=== PATIENT | female | born 1975 | race Caucasian/White ===

== ENCOUNTER 2017-11-15 14:55 | Observation (INO) | payer MEDICAID, OTHER, SELFPAY ==
[2017-11-15] MEDS ORDERED: MORPHINE 4 MG/ML SYR ONE (15:14)
[2017-11-15] MEDS ORDERED: ONDANSETRON 4 MG/2 ML VIAL ONE (15:14)
[2017-11-15] MEDS ORDERED: NA CHLORIDE 0.9% 1,000 ML ONE (15:14)
[2017-11-15 15:44] LABS: Absolute Lymphocytes (CBC) 1.8 K/uL (0.7-4.9); Absolute Monocytes 0.6 K/uL (0.1-1.3); Absolute Neutrophil 4.9 K/uL (1.8-8.0); Basophils % 0.6 % (0-1.3); Hematocrit 38.3 % (36.0-45.0); Lymphocytes % 22.9 % (15.3-44.8); MCH 29.3 pg (27.0-35.0); MCV 87.1 fL (80-100); MPV 9.9 fL (7.6-11.3); Monocytes % 7.4 % (3.3-12.3); RBC Red Blood Cell Count 4.39 M/uL (3.86-4.86)
[2017-11-15] MEDS ORDERED: KETOROLAC 30 MG/ML INJ ONE (16:03)
--- NOTE | 2017-11-15 17:04 | RAD REPORT ---
EXAM DESCRIPTION: CT - Abdomen Pelvis W Contrast - 11/15/2017 4:45 pm CLINICAL HISTORY: Abdominal pain COMPARISON: none. TECHNIQUE: Computed axial tomography of the abdomen pelvis was obtained. 100 cc Isovue-300 was admin istered intravenously. Oral contrast was not requested which limits evaluation of bowel. All CT scans are performed using dose optimization technique as appropriate and may include automated exposure control or mA/KV adjustment according to patient size. FINDINGS: The liver, spleen, pancreas, adrenal and kidneys appear unremarkable. There is no evidence of diverticulitis. The appendix is normal A left rectus muscle hematoma measures 5 x 3 centimeters. It contains curvilinear areas of increased density probably indicating active bleeding. IMPRESSION: 5 x 3 centimeter left rectus muscle hematoma with active bleeding
[2017-11-15 17:14] LABS: Urine Blood NEGATIVE (NEG); Urine Glucose NEGATIVE (NEG); Urine Protein NEGATIVE (NEG)
--- NOTE | 2017-11-15 17:26 | EDPHYS ---
Physician Documentation [facility] Name: Glo Lowery Age: 42 yrs Sex: Female : 1975 Arrival Date: 11/15/2017 Time: 15:01 Bed 27 Private MD: ED Physician Matti Poole HPI: 11/15 15:37 This 42 yrs old Female presents to ER via EMS with complaints of abdominal jr8 pain. 15:37 The patient presents with abdominal pain in the lower abdomen. Onset: The jr8 symptoms/episode began/occurred acutely, today. The symptoms do not radiate. Associated signs and symptoms: none. The symptoms are described as stabbing. Modifying factors: The symptoms are alleviated by nothing, the symptoms are aggravated by nothing. Severity of pain: At its worst the pain was moderate in the emergency department the pain is unchanged. The patient has not experienced similar symptoms in the past. The patient has not recently seen a physician. 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 - Social history:: Smoking status: Patient/guardian denies using tobacco, Patient/guardian denies using alcohol, street drugs, IV drugs. - Ebola Screening: : No symptoms or risks identified at this time. ROS: 15:37 ENT: Negative for injury, pain, and discharge, Neck: Negative for injury, pain, and jr8 swelling, Cardiovascular: Negative for chest pain, palpitations, and edema, Respiratory: Negative for shortness of breath, cough, wheezing, and pleuritic chest pain, Back: Negative for injury and pain, MS/Extremity: Negative for injury and deformity, Skin: Negative for injury, rash, and discoloration, Neuro: Negative for headache, weakness, numbness, tingling, and seizure. 15:37 Abdomen/GI: Positive for abdominal pain, Negative for nausea, vomiting, and diarrhea, abdominal distension, anorexia, dysphagia, hematemesis, black/tarry stool, rectal pain, rectal bleeding, bowel incontinence, flatulence. Exam: 15:37 Eyes: Pupils equal round and reactive to light, extra-ocular motions intact. Lids and jr8 lashes normal. Conjunctiva and sclera are non-icteric and not injected. Cornea within normal limits. Periorbital areas with no swelling, redness, or edema. ENT: Nares patent. No nasal discharge, no septal abnormalities noted. Tympanic membranes are normal and external auditory canals are clear. Oropharynx with no redness, swelling, or masses, exudates, or evidence of obstruction, uvula midline. Mucous membranes moist. Neck: Trachea midline, no thyromegaly or masses palpated, and no cervical lymphadenopathy. Supple, full range of motion without nuchal rigidity, or vertebral point tenderness. No Meningismus. Cardiovascular: Regular rate and rhythm with a normal S1 and S2. No gallops, murmurs, or rubs. Normal PMI, no JVD. No pulse deficits. Respiratory: Lungs have equal breath sounds bilaterally, clear to auscultation and percussion. No rales, rhonchi or wheezes noted. No increased work of breathing, no retractions or nasal flaring. Back: No spinal tenderness. No costovertebral tenderness. Full range of motion. Skin: Warm, dry with normal turgor. Normal color with no rashes, no lesions, and no evidence of cellulitis. MS/ Extremity: Pulses equal, no cyanosis. Neurovascular intact. Full, normal range of motion. Neuro: Awake and alert, GCS 15, oriented to person, place, time, and situation. Cranial nerves II-XII grossly intact. Motor strength 5/5 in all extremities. Sensory grossly intact. Cerebellar exam normal. Normal gait. 15:37 Constitutional: The patient appears alert, awake, in obvious distress, in obvious pain. 15:37 Abdomen/GI: Inspection: abdomen appears normal, Bowel sounds: active, all quadrants, Palpation: soft, in all quadrants, moderate abdominal tenderness, in the right lower quadrant and left lower quadrant, mass, is not appreciated, rebound tenderness, is not appreciated, voluntary guarding, is not appreciated, involuntary guarding, is elicited in the right lower quadrant and left lower quadrant, no appreciated organomegaly, Indicators: McBurney's point is tender, Barnett's sign is negative, Rovsing's sign is negative, Obturator sign is negative, Psoas sign is negative, Liver: no appreciated palpable abnormalities, tenderness, is not appreciated. Vital Signs: 15:04 BP 121 / 80; Pulse 84; Resp 18; Temp 98.2; Pulse Ox 100% on R/A; Weight 54.43 kg; mg2 Height 5 ft. 1 in. (154.94 cm); Pain 10/10; 16:06 BP 116 / 62; Pulse 82; Resp 18; Pulse Ox 100% on R/A; Pain 8/10; mg2 16:54 BP 123 / 50; Pulse 87; Resp 18; Pulse Ox 100% on R/A; Pain 8/10; mg2 18:04 BP 121 / 77; Pulse 82; Resp 18; Pulse Ox 99% on R/A; Pain 2/10; mg2 19:16 BP 118 / 77; Pulse 84; Resp 18; Pulse Ox 100% on R/A; Pain 2/10; mg2 15:04 Body Mass Index 22.67 (54.43 kg, 154.94 cm) mg2 MDM: 15:03 Patient medically screened. jr8 17:20 Data reviewed: vital signs, nurses notes, lab test result(s), radiologic studies, CT jr8 scan. Data interpreted: Pulse oximetry: on room air is 100 %. Interpretation: normal. Counseling: I had a detailed discussion with the patient and/or guardian regarding: the historical points, exam findings, and any diagnostic results supporting the discharge/admit diagnosis, lab results, radiology results, the need for further work-up and treatment in the hospital. ED course: Dr. Horvath consulted and will see patient . 11/15 15:10 Order name: Basic Metabolic Panel; Complete Time: 17:50 11/15 15:10 Order name: CBC with Diff; Complete Time: 15:51 11/15 15:10 Order name: Creatinine for Radiology; Complete Time: 16:16 11/15 15:10 Order name: Hepatic Function; Complete Time: 17:50 11/15 15:10 Order name: Lipase; Complete Time: 17:50 11/15 16:35 Order name: Urine Dipstick--Ancillary (enter results); Complete Time: 17:20 ag 11/15 15:52 Order name: CT Abd/Pelvis - W/Contrast; Complete Time: 17:05 11/15 16:35 Order name: Urine --Ancillary (enter results); Complete Time: 17:20 ag 11/15 19:01 Order name: Type And Screen mg2 11/15 15:10 Order name: Urine Test (obtain specimen); Complete Time: 16:07 [facility] 11/15 15:10 Order name: IV Saline Lock; Complete Time: 15:46 [facility] 11/15 15:10 Order name: Labs collected and sent; Complete Time: 15:46 [facility] 11/15 15:10 Order name: Urine Dipstick-Ancillary (obtain specimen); Complete Time: 16:07 [facility] 11/15 17:30 Order name: CONS Physician Consult [facility] 11/15 19:07 Order name: Diet Regular; Complete Time: 19:07 mg2 Administered Medications: 15:13 Drug: Zofran 4 mg Route: IVP; Site: right antecubital; mg2 16:55 Follow up: Response: No adverse reaction mg2 15:13 Drug: morphine 4 mg Route: IVP; Site: right antecubital; mg2 16:55 Follow up: Response: No adverse reaction; No change in condition; Pain is unchanged, mg2 physician notified 15:14 Drug: NS 0.9% 1000 ml Route: IV; Rate: 1000 ml; Site: right antecubital; mg2 16:55 Follow up: Response: No adverse reaction; IV Status: Completed infusion mg2 16:06 Drug: TORadol 30 mg Route: IVP; Site: right antecubital; mg2 16:55 Follow up: Response: No adverse reaction; No change in condition mg2 17:26 Drug: fentaNYL (PF) 75 mcg Route: IVP; Site: right antecubital; mg2 17:57 Follow up: Response: No adverse reaction; Marked relief of symptoms mg2 Disposition: 11/15/17 17:26 Hospitalization ordered by Rina Elizondo for Observation. Preliminary diagnosis are Abdominal and pelvic pain, Hematoma of the left Rectus Abdominis , Intractable abdominal pain . - Bed requested for Telemetry/MedSurg (observation). - Status is Observation. mg2 - Condition is Stable. - Problem is new. - Symptoms are unchanged. UTI on Admission? No Addendum: 11/17/2017 07:52 Co-signature as Attending Physician, Matti Poole MD I agree with the assessment and w a plan of care. Signatures: Dispatcher [employer] Cassidy Drake RN RN dw Quinn Storm PA PA jr8 Matti Poole MD MD wa Gardose, Michele, RN RN mg2 Corrections: (The following items were deleted from the chart) 11/15 17:13 15:37 Abdomen/GI: Inspection: abdomen appears normal, Bowel sounds: active, all jr8 quadrants, Palpation: soft, in all quadrants, severe abdominal tenderness, in the right lower quadrant, mass, is not appreciated, rebound tenderness, is not appreciated, voluntary guarding, is not appreciated, involuntary guarding, is elicited in the right lower quadrant, no appreciated organomegaly, Indicators: McBurney's point is tender, Barnett's sign is negative, Rovsing's sign is negative, Obturator sign is negative, Psoas sign is negative, Liver: no appreciated palpable abnormalities, tenderness, is not appreciated, jr8 17:26 17:26 Hospitalization Ordered by Rina Elizondo MD for Observation. Preliminary jr8 diagnosis is Abdominal and pelvic pain; Hematoma of the left Rectus Abdominus ; Intractable abdominal pain . Bed requested for Telemetry/MedSurg (observation). Status is Observation. Condition is Stable. Problem is new. Symptoms are unchanged. UTI on Admission? No. jr8 17:43 17:26 11/15/2017 17:26 Hospitalization Ordered by Rina Elizondo MD for Observation. dw Preliminary diagnosis is Abdominal and pelvic pain; Hematoma of the left Rectus Abdominis ; Intractable abdominal pain . Bed requested for Telemetry/MedSurg (observation). Status is Observation. Condition is Stable. Problem is new. Symptoms are unchanged. UTI on Admission? No. jr8 19:32 17:43 11/15/2017 17:26 Hospitalization Ordered by Rina Elizondo MD for Observation. mg2 Preliminary diagnosis is Abdominal and pelvic pain; Hematoma of the left Rectus Abdominis ; Intractable abdominal pain . Bed requested for Telemetry/MedSurg (observation). Status is Observation. Condition is Stable. Problem is new. Symptoms are unchanged. UTI on Admission? No. dw
--- NOTE | 2017-11-15 17:26 | ER ---
Nurse's Notes [facility] Name: Glo Lowery Age: 42 yrs Sex: Female : 1975 Arrival Date: 11/15/2017 Time: 15:01 Bed 27 Private MD: Diagnosis: Abdominal and pelvic pain;Hematoma of the left Rectus Abdominis ;Intractable abdominal pain Presentation: 11/15 15:01 Presenting complaint: EMS states: she got a sudden right abdominal pain radiating to mg2 the left side that started just few minutes DIRECTOR OF GLOBAL TALENT. Denies N/V. She is on Antibiotic for an infection for her (Pap Smear). Transition of care: patient was not received from another setting of care. Onset of symptoms was November 15, 2017. Risk Assessment: Do you want to hurt yourself or someone else? Patient reports no desire to harm self or others. Initial Sepsis Screen: Does the patient meet any 2 criteria? No. Patient's initial sepsis screen is negative. Does the patient have a suspected source of infection? No. Patient's initial sepsis screen is negative. Care prior to arrival: None. 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 - Social history:: Smoking status: Patient/guardian denies using tobacco, Patient/guardian denies using alcohol, street drugs, IV drugs. - Ebola Screening: : No symptoms or risks identified at this time. Screenin:06 Abuse screen: Denies threats or abuse. Denies injuries from another. Nutritional mg2 screening: No deficits noted. Tuberculosis screening: No symptoms or risk factors identified. Fall Risk IV access (20 points). Assessment: 15:46 General: Appears distressed, uncomfortable, Behavior is cooperative, crying. Pain: mg2 Complains of pain in right lower quadrant Pain radiates to left abdomen Pain currently is 10 out of 10 on a pain scale. Quality of pain is described as aching, ripping Pain began suddenly, Is continuous. Neuro: Level of Consciousness is awake, alert, obeys commands, Oriented to person, place, time, situation. Cardiovascular: Capillary refill < 3 seconds Patient's skin is warm and dry. Respiratory: Airway is patent Respiratory effort is even, unlabored, Respiratory pattern is regular, symmetrical. GI: Abdomen is flat, non-distended, Reports lower abdominal pain. : No signs and/or symptoms were reported regarding the genitourinary system. EENT: No signs and/or symptoms were reported regarding the EENT system. Derm: Skin is intact, Skin is pink, warm \T\ dry. normal. Musculoskeletal: No signs and/or symptoms reported regarding the musculoskeletal system. 16:07 Reassessment: Patient appears in no apparent distress at this time. Patient and/or mg2 family updated on plan of care and expected duration. Pain level reassessed. Patient is alert, oriented x 3, equal unlabored respirations, skin warm/dry/pink. 16:54 Reassessment: Patient appears in no apparent distress at this time. Patient and/or mg2 family updated on plan of care and expected duration. Pain level reassessed. Patient is alert, oriented x 3, equal unlabored respirations, skin warm/dry/pink. 18:21 Reassessment: TOMMY Benjamin said receiving nurse will call back to take the report. mg2 19:17 Reassessment: julia gurrola called and informed that patient will be admitted. mg2 19:18 Reassessment: TOMMY Preston will call back to receive the report. mg2 Vital Signs: 15:04 BP 121 / 80; Pulse 84; Resp 18; Temp 98.2; Pulse Ox 100% on R/A; Weight 54.43 kg; mg2 Height 5 ft. 1 in. (154.94 cm); Pain 10/10; 16:06 BP 116 / 62; Pulse 82; Resp 18; Pulse Ox 100% on R/A; Pain 8/10; mg2 16:54 BP 123 / 50; Pulse 87; Resp 18; Pulse Ox 100% on R/A; Pain 8/10; mg2 18:04 BP 121 / 77; Pulse 82; Resp 18; Pulse Ox 99% on R/A; Pain 2/10; mg2 19:16 BP 118 / 77; Pulse 84; Resp 18; Pulse Ox 100% on R/A; Pain 2/10; mg2 15:04 Body Mass Index 22.67 (54.43 kg, 154.94 cm) mg2 ED Course: 15:01 Patient arrived in ED. mg2 15:03 Quinn Storm PA is PHCP. jr8 15:03 Matti Poole MD is Attending Physician. jr8 15:03 Triage completed. mg2 15:05 Arm band placed on. mg2 15:05 No provider procedures requiring assistance completed. Inserted saline lock: 20 gauge mg2 in right antecubital area, using aseptic technique. Blood collected. 15:13 Jeronimo Bowser, TOMMY is Primary Nurse. mg2 15:48 Patient has correct armband on for positive identification. Pulse ox on. NIBP on. Door mg2 closed. Warm blanket given. 16:[address] via wheelchair. cw1 16:45 CT completed. Patient moved back from CT. cw1 16:45 CT Abd/Pelvis - W/Contrast In Process Unspecified. EDMS 17:25 Rina Elizondo MD is Hospitalizing Provider. jr8 19:17 Patient admitted, IV remains in place. mg2 Administered Medications: 15:13 Drug: Zofran 4 mg Route: IVP; Site: right antecubital; mg2 16:55 Follow up: Response: No adverse reaction mg2 15:13 Drug: morphine 4 mg Route: IVP; Site: right antecubital; mg2 16:55 Follow up: Response: No adverse reaction; No change in condition; Pain is unchanged, mg2 physician notified 15:14 Drug: NS 0.9% 1000 ml Route: IV; Rate: 1000 ml; Site: right antecubital; mg2 16:55 Follow up: Response: No adverse reaction; IV Status: Completed infusion mg2 16:06 Drug: TORadol 30 mg Route: IVP; Site: right antecubital; mg2 16:55 Follow up: Response: No adverse reaction; No change in condition mg2 17:26 Drug: fentaNYL (PF) 75 mcg Route: IVP; Site: right antecubital; mg2 17:57 Follow up: Response: No adverse reaction; Marked relief of symptoms mg2 Outcome: 17:26 Decision to Hospitalize by Provider. jr8 19:31 Admitted to Med/surg accompanied by tech, via wheelchair, room 212, with chart, Report mg2 called to TOMMY Preston 19:31 Condition: stable 19:31 Instructed on the need for admit, Demonstrated understanding of instructions. 19:32 Patient left the ED. 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 Denies N/V. mg2
[2017-11-15] MEDS ORDERED: FENTANYL CITR 100 MCG/2 ML ONE (17:27)
[2017-11-15 17:46] LABS: ALT/SGPT 28 U/L (12-78); AST/SGOT 34 U/L (15-37); Albumin 4.1 g/dL (3.4-5.0); Alkaline Phosphatase 89 U/L (45-117); BUN Blood Urea Nitrogen 15 mg/dL (7-18); Bicarbonate 24 mmol/L (21-32); Bilirubin Direct < 0.1 mg/dL (0-0.2); Bilirubin Total 0.5 mg/dL (0.2-1.0); Glucose Level 102 mg/dL (74-106); Lipase 238 U/L (73-393); Potassium 4.5 mmol/L (3.5-5.1); Sodium Level 138 mmol/L (136-145)
[2017-11-15] MEDS: ACETAMINOPHEN 500 MG TAB PO PRN (20:09)
[2017-11-15] MEDS: NA CHLORIDE 0.9% 1,000 ML IV SCH (20:10)
[2017-11-15 22:55] LABS: Hematocrit 31.5 % (36.0-45.0)
--- NOTE | 2017-11-16 02:09 | HP ---
Date of Admission: 11/15/2017 Reason For Admission: Abdominal pain. History Of Present Illness: A 42-year-old female with history of depression, anxiety, drug addicts w ith meth abuse. She is clean for the last 18 days according to the patient, presented emergency room with history of abdominal pain started in the lower abdomen on the left lower quadrant 3 days, was i nitially mild and patient said she pulled a muscle but this morning it was excruciating seen in [facility] emergency room. In the ER, she was evaluated. CAT scan of the abdomen showed a 5.3 cm rectus mu scle hematoma with active bleeding. The patient's CBC was normal. Currently, she looks comfortable. She has no abdominal pain. No nausea, vomiting. General Surgery consulted and Dr. Horvath advised to repeat serial imaging and he will evaluate the patient in the emergency room. Review of systems otherwise as below. Past Medical History: Significant for depression and anxiety. Past Surgical History: None. Allergies: NONE. Home Medications: She is on Seroquel and Prozac. Social History: She is single. Has 3 kids. Does not work. She does not smoke or drink. She is cl mio with methamphetamine and she is sober for 19 days. Family History: Significant for mother of pancreatitis secondary to alcoholism. Father alive. Review of Systems: Denies any fever, chills, night sweats, dizziness, lightheaded, headache, blurred vision. There was no change in weight or appetite. She does not have any cough, sputum, chest pain, palpitation, PND, orthopnea, dyspnea on exertion, lower extremity edema. No nausea, vomiting, but she had abdominal pa in in the left lower quadrant. There is no change in bowel movement, blood in stool or black stool. No dysuria, frequency, urgency, hematuria. No history of trauma. No seizure or stroke. She has hi story of depression and anxiety. Physical Examination: Vital Signs: Blood pressure is 121/80, respiratory rate 18, pulse 84, temperature 98.2, saturating 1 00% on room air. General: The patient is alert and oriented x3. Does not look in any distress. HEENT: Atraumatic, normocephalic. PERRLA. Oral mucosa is moist. Neck: Supple. No JVD. No carotid bruits. Chest: Clear to auscultation. Good air entry. Heart: Regular rate and rhythm. S1, S2 normal. No gallop or murmur. Abdomen: Tenderness with guarding in the left lower quadrant. There is no rebound. She does have p ositive bowel sounds. Extremities: No clubbing, cyanosis, or edema. No calf tenderness. Neurologic: Grossly intact. Cranial nerve exam 2 through 12 intact. Normal sensation. Normal refl exes. Normal muscle strength. Laboratory Data: Labs done in the emergency room showed CBC within normal. CMP within normal. CAT scan as I mentioned above. Assessment: This 42-year-old female with history of depression, anxiety, drug abuse, presented with abdominal pain and found to have left lower quadrant hematoma. 1.Left lower quadrant hematoma etiology? We will continue observation. Symptomatic treatment for p ain. I will check H and H every 6 hours. Transfused if hemoglobin below 9. General Surgery consult requested. 2.History of depression and anxiety. We will resume home medication. Also, verify dose from the ph armacy. 3.History of drug abuse. The patient is currently sober for the last 20 days. GLORIA/CHU Voice ID: [id number]
[2017-11-16 05:06] LABS: Absolute Lymphocytes (CBC) 1.3 K/uL (0.7-4.9); Absolute Monocytes 0.5 K/uL (0.1-1.3); Absolute Neutrophil 3.9 K/uL (1.8-8.0); Basophils % 0.6 % (0-1.3); Eosinophils % 5.5 % (0-4.4); Lymphocytes % 21.6 % (15.3-44.8); MCH 29.3 pg (27.0-35.0); MCV 87.2 fL (80-100); MPV 9.5 fL (7.6-11.3); Monocytes % 8.8 % (3.3-12.3); RBC Red Blood Cell Count 3.67 M/uL (3.86-4.86)
[2017-11-16] MEDS: ACETAMINOPHEN 500 MG TAB PO PRN ×3 (05:09→17:00)
[2017-11-16] MEDS: NA CHLORIDE 0.9% 1,000 ML IV SCH ×2 (05:10→17:00)
[2017-11-16 05:50] LABS: ALT/SGPT 22 U/L (12-78); AST/SGOT 25 U/L (15-37); Albumin 3.1 g/dL (3.4-5.0); Alkaline Phosphatase 68 U/L (45-117); BUN Blood Urea Nitrogen 14 mg/dL (7-18); Bicarbonate 29 mmol/L (21-32); Bilirubin Total 0.6 mg/dL (0.2-1.0); Glucose Level 79 mg/dL (74-106); Potassium 4.3 mmol/L (3.5-5.1); Protein, Total 5.9 g/dL (6.4-8.2); Sodium Level 140 mmol/L (136-145)
[2017-11-16 11:24] LABS: Hematocrit 30.7 % (36.0-45.0)
[2017-11-16 11:39] LABS: Barbiturates NEGATIVE (NEGATIVE); Benzodiazepines NEGATIVE (NEGATIVE); Cocaine NEGATIVE (NEGATIVE); METHAMPHETAM NEGATIVE (NEGATIVE); Methadone NEGATIVE (NEGATIVE); Opiates NEGATIVE (NEGATIVE); Phencyclidine NEGATIVE (NEGATIVE); THC Cannibis NEGATIVE (NEGATIVE)
--- NOTE | 2017-11-16 15:17 | P.PN ---
Subjective Date of Service: 11/16/17 Subjective: No new changes (pain minimal, no changes) Physical Examination - Vital Signs Temperature: 99.0 F Blood Pressure: 100/55 Pulse: 73 Respirations: 16 Pulse Ox (%): 99 - Physical Exam General: Alert, In no apparent distress, Cooperative Gastrointestinal: Other (soft, mild LLQ TTP, ND, no rebound, no guarding) - Studies Laboratory Data (last 24 hrs) 11/15/17 15:10: Sodium 138, Potassium 4.5, BUN 15, Creatinine 0.80, Glucose 102 , Total Bilirubin 0.5, AST 34, ALT 28, Alkaline Phosphatase 89, Lipase 238 11/15/17 15:05: Creatinine 0.90 11/15/17 15:05: WBC 7.7, Hgb 12.9, Hct 38.3, Plt Count 243 Assessment And Plan - Current Problems (Diagnosis) (1) Nontraumatic rectus hematoma Current Visit: Yes Status: Acute Plan: - hemoglobin stable - stable exam
--- NOTE | 2017-11-16 18:21 | PN ---
Subjective: Currently, patient is lying in bed. She looks comfortable, but she continues to have pa in in the left lower quadrant, though morphine helping. There was no fever, no chills overnight. Sh julia does not have any shortness of breath or chest pain. No black stool or blood in stool. Review of Systems: Otherwise, negative. Objective: Vital Signs: Currently, blood pressure is 100/55, respiratory rate 16, pulse 73, tempera ture 99. General: The patient is alert and oriented x3, does not look in any distress. HEENT: Atraumatic, normocephalic. PERRLA. Oral mucosa is moist. Neck: Supple. No JVD. No carotid bruits. Chest: Clear to auscultation. Good air entry. Heart: Regular rate and rhythm. S1, S2 normal. No gallop or murmur. Abdomen: Soft. Minimal tenderness in the left lower quadrant. There is no guarding or rebound. Po sitive bowel sounds. Extremities: No clubbing, cyanosis, or edema. No calf tenderness. Neurologic: Grossly intact. Laboratory Data: Labs today showed CBC with a hemoglobin down from 12.9 on admission to 10.5 today, otherwise normal chemistry with a normal QAMARKER] albumin is 3.1. Assessment And Plan: 1.Spontaneous left lower quadrant hematoma, etiology unknown at this point. General Surgery followi ng. H and H dropped, but it is still not drastic, no transfusion needed. At this point, we will con tinue H and H follow up every [address] Horvath from General Surgery following patient. Probably , will need to repeat imaging tomorrow morning, but we will wait for Surgery recommendation. 2.History of depression and anxiety. I will continue patient on Prozac 40 mg at bedtime and Seroque l 50 mg at bedtime. 3.History of drug abuse. The patient is sober for the last 3 weeks apparently. 4.Pain well controlled with morphine. 5.No deep vein thrombosis prophylaxis. The patient has large hematoma. 6.Discharge plan will depend on General Surgery recommendation and if H and H continued to be stable . MT/MODL Voice ID: [id number] Report ID: [id number]
--- NOTE | 2017-11-16 18:27 | CON ---
Date of Consultation: 11/16/2017 Brief History Of Present Illness: The patient is a 42-year-old female with a history of de pression, anxiety, and drug addiction with recent methamphetamine abuse approximately 20 days ago. S he is currently living in an assisted facility for rehabilitation from substance abuse. She presente d with approximately 1-2 day history of abdominal pain beginning in the left lower quadrant and sprea ding across her abdomen to her bilateral lower abdomen, but the pain is predominantly on the left low er quadrant at this time. She has no other symptoms other than the pain, it has been essentially unr elenting, sharp stabbing in nature, not alleviated by anything, and worse with palpation. She has no t had similar episodes before in the past. Past Medical History: Significant for depression and anxiety. Past Surgical History: Denies. Allergies: NONE. Home Medications: Seroquel and Prozac. Social History: She is single, has 3 kids. She is currently unemployed. Lives with a boyfriend. S he denies smoking or alcohol. 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 Family History: Her mother of pancreatitis due to secondary alcoholism. Review of Systems: A 10-point review of systems other than HPI, denies. Physical Examination: Vital Signs: At the time of my examination, her BMI is 22.7, her blood pressure was 131/67, pulse is 80, respiratory rate 18, and temperature 97.6. General: She is awake, alert, and oriented. Psychiatric: She is appropriate and conversive. HEENT: She is normocephalic. Sclerae anicteric. Mucous membranes are moist. Oropharynx clear. Neck: Supple. No JVD. Chest: Normal expansion and excursion. Cardiovascular: Regular rate and rhythm. Pulmonary: Clear to auscultation bilaterally. Abdomen: Soft with mild left lower quadrant tenderness to palpation. There is no focal peritonitis. There is no rebound. There is mild voluntary guarding. There are no abdominal scars with no herni as appreciated. Extremities: No clubbing, cyanosis, or edema. Skin: Warm and dry. Laboratory Data: She had a laboratory exam, which reveals a white blood count of 7.7, hemoglobin 10. 8, hematocrit 31.5, and platelet count is 243. Her sodium 138, potassium 4.5, chloride 105, carbon d ioxide 24, BUN 15, creatinine 0.9, and glucose is 102. Total bilirubin is 0.5, AST normal at 34, ALT 28, alkaline phosphatase is 89, and lipase is 238. UA was negative. test negative. Toxi cology screen is completely negative down the line. She had a CT scan performed of the abdomen and p marilu, which showed a 5 x 3 cm left rectus muscle hematoma, possibly with active bleeding. Assessment And Plan: This is a 42-year-old female, who presents with no trauma and a rectus sheath h ematoma on the left of uncertain etiology, given she has no history of trauma other than occasional s neezing she states, and there was no obvious etiology. Therefore, we will admit her for this due to the possibility of active bleeding and check serial H and Hs and serial abdominal exams. Should her hemoglobin remain stable and her examination not worsen, she will likely be a candidate for discharge tomorrow morning with instructions to follow up and avoid all blood thinners of any kind including o [id number]-[id number] to include aspirin and other [id number] blood thinners. I have explained the r isks, benefits, and alternatives of this plan to the patient. She agrees to proceed as indicated. Thank you for this interesting consult. KIRA/CHU Voice ID: [id number] Report ID: [id number]
[2017-11-16] MEDS: MORPHINE 2 MG/ML SYR IV PRN (20:34)
[2017-11-16] MEDS ORDERED: QUETIAPINE 25 MG TAB PO SCH (21:00)
[2017-11-16] MEDS ORDERED: FLUOXETINE 20 MG CAP PO SCH (21:00)
[2017-11-17] MEDS: NA CHLORIDE 0.9% 1,000 ML IV SCH ×2 (00:58→10:05)
[2017-11-17 05:22] LABS: Hematocrit 31.5 % (36.0-45.0)
[2017-11-17] MEDS: MORPHINE 2 MG/ML SYR IV PRN (10:04)
[2017-11-17 10:14] LABS: Hematocrit 31.2 % (36.0-45.0)
--- NOTE | 2017-11-17 13:47 | P.SSS ---
Patient History Date of Service: 11/17/17 History of Present Illness: A 42-year-old female with history of depression, anxiety, drug addicts with meth abuse. She is clean for the last 18 days according to the patient, presented emergency room with history of abdominal pain started in the lower abdomen on the left lower quadrant 3 days, was initially mild and patient said she pulled a muscle but this morning it was excruciating seen in surgical emergency room. In the ER, she was evaluated. CAT scan of the abdomen showed a 5.3 cm rectus muscle hematoma with active bleeding. The patient's CBC was normal. Currently, she looks comfortable. She has no abdominal pain. No nausea, vomiting. General Surgery consulted and Dr. Horvath advised to repeat serial imaging and he will evaluate the patient in the emergency room. Review of systems otherwise as below. Allergies No Known Allergies Allergy (Verified 11/15/17 19:52) Home Medications: Fluoxetine HCl [Prozac] 1 tab PO BEDTIME 11/15/17 Quetiapine Fumarate [Seroquel] 1 tab PO BEDTIME 11/15/17 Metronidazole 1 tab PO BID 11/16/17 - Past Medical/Surgical History Has patient received pneumonia vaccine in the past: No Diabetic: No -: Bacterial infection on papsmear -: anxiety/ depression -: emergency cs in 2004 -: 1995= ovarian dysplasia -: 1996= freezing of cervix -: 2014= removal of mass in the uterus - Social History Smoking Status: Never smoker Alcohol use: No CD- Drugs: Yes Caffeine use: Yes Place of Residence: Home Review of Systems 10-point ROS is otherwise unremarkable Physical Examination - Vital Signs Temperature: 98.5 F Blood Pressure: 122/60 Pulse: 84 Respirations: 16 Pulse Ox (%): 98 - Physical Exam General: Alert, In no apparent distress HEENT: Atraumatic, PERRLA, Mucous membr. moist/pink, EOMI, Sclerae nonicteric Neck: Supple, 2+ carotid pulse no bruit, No LAD, Without JVD or thyroid abnormality Respiratory: Clear to auscultation bilaterally, Normal air movement Cardiovascular: Regular rate/rhythm, Normal S1 S2 Gastrointestinal: Normal bowel sounds, No tenderness Musculoskeletal: No tenderness Integumentary: No rashes Neurological: Normal gait, Normal speech, Normal strength at 5/5 x4 extr, Normal tone, Normal affect Lymphatics: No axilla or inguinal lymphadenopathy Treatment Summary: Discharge diagnosis 1. Abdominal wall hematoma Hospital Course This is a 42-year-old female, who presents with no trauma and a rectus sheath hematoma on the left of uncertain etiology, patient had serial H&H which remained stable. General surgery was also consulted while here in the hospital. No surgical procedure were required patient remained stable. H&H remained stable as well. No further complication was noted this patient was discharged home under stable condition. - Disposition Disposition: ROUTINE DISCHARGE Condition: GOOD Diet: Regular Activity: Ad saul
== END 2017-11-17 15:45 | disposition home or self-care (01) ==
LOC: ER 14:55 → SUPCPDRO 14:55 → ERHOLD 17:27 → 2ND 19:07
PROVIDERS: ADMIT Internal Medicine; ATTEND Internal Medicine
DX: M79.81 Nontraumatic hematoma of soft tissue (principal); F41.8 Other specified anxiety disorders; F19.11 Other psychoactive substance abuse, in remission
CPT/HCPCS: 36415; 74177; 80048; 80053; 80076; 80307; 81003; 81025; 83690; 85014; 85018; 85025; 86850; 86900; 86901; 96361; 96374; 96375; 99285; G0378; J2270; J2405; J3010; J7030; Q9967

== ENCOUNTER 2017-11-22 13:58 | Emergency (ER) | payer MEDICAID, OTHER ==
[2017-11-22 15:49] LABS: Protime INR 1.06
[2017-11-22] MEDS ORDERED: FENTANYL CITR 100 MCG/2 ML ONE (15:50)
[2017-11-22] MEDS ORDERED: ONDANSETRON 4 MG/2 ML VIAL ONE (15:50)
[2017-11-22 15:51] LABS: Absolute Lymphocytes (CBC) 1.4 K/uL (0.7-4.9); Absolute Monocytes 0.9 K/uL (0.1-1.3); Absolute Neutrophil 6.6 K/uL (1.8-8.0); Basophils % 0.5 % (0-1.3); Eosinophils % 2.9 % (0-4.4); Hematocrit 36.2 % (36.0-45.0); Lymphocytes % 15.2 % (15.3-44.8); MCH 30.3 pg (27.0-35.0); MCV 87.5 fL (80-100); MPV 9.5 fL (7.6-11.3); Monocytes % 9.8 % (3.3-12.3); RBC Red Blood Cell Count 4.13 M/uL (3.86-4.86)
[2017-11-22 15:58] LABS: Albumin 3.9 g/dL (3.4-5.0); Bilirubin Direct 0.1 mg/dL (0-0.2); Bilirubin Total 0.5 mg/dL (0.2-1.0); Potassium 4.1 mmol/L (3.5-5.1)
[2017-11-22 17:05] LABS: Urine Blood NEGATIVE (NEG); Urine Glucose NEGATIVE (NEG); Urine Protein NEGATIVE (NEG); Urine Specific Gravity 1.015 (1.005-1.030)
--- NOTE | 2017-11-22 17:45 | EDPHYS ---
Physician Documentation [facility] Name: Glo Lowery Age: 42 yrs Sex: Female : 1975 Arrival Date: 11/22/2017 Time: 14:01 Bed 28 Private MD: Flaco Lantigua ED Physician Duncan Loo HPI: 11/22 17:00 This 42 yrs old Female presents to ER via Ambulatory with complaints of pm1 Bloody Stools. 17:00 The patient presents to the emergency department with rectal bleeding, a small amount, pm1 on toilet paper, 2 times since symptom onset. Onset: The symptoms/episode began/occurred today. Abdominal pain: located in the left lower quadrant, that does not radiate. Modifying factors: The symptoms are alleviated by nothing, the symptoms are aggravated by bowel movement. Associated signs and symptoms: Pertinent negatives: chest pain, diarrhea, fever, shortness of breath, vomiting. Severity of symptoms: Pain is currently a 0 / 10. The patient has not experienced similar symptoms in the past. The patient has been recently seen by a physician: Patient was admitted on 11/15 for rectus abdominal sheath hematoma. Patient was concerned that the rectal bleeding might be related to that. Patient's with anal pain with bowel movement, and trace amount of bright red blood on the paper with wiping. No blood in the toilet.. 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 - Social history:: Smoking status: unknown. - Ebola Screening: : No symptoms or risks identified at this time. ROS: 17:00 Constitutional: Negative for fever, chills, and weight loss, Eyes: Negative for injury, pm1 pain, redness, and discharge, ENT: Negative for injury, pain, and discharge, Neck: Negative for injury, pain, and swelling, Cardiovascular: Negative for chest pain, palpitations, and edema, Respiratory: Negative for shortness of breath, cough, wheezing, and pleuritic chest pain. 17:00 Back: Negative for injury and pain, : Negative for injury, bleeding, discharge, and swelling, MS/Extremity: Negative for injury and deformity, Skin: Negative for injury, rash, and discoloration, Neuro: Negative for headache, weakness, numbness, tingling, and seizure. 17:00 Abdomen/GI: Positive for abdominal pain, rectal pain, rectal bleeding, Negative for nausea, vomiting, and diarrhea. Exam: 17:00 Constitutional: This is a well developed, well nourished patient who is awake, alert, pm1 and in no acute distress. Head/Face: Normocephalic, atraumatic. Eyes: Pupils equal round and reactive to light, extra-ocular motions intact. Lids and lashes normal. Conjunctiva and sclera are non-icteric and not injected. Cornea within normal limits. Periorbital areas with no swelling, redness, or edema. ENT: Nares patent. No nasal discharge, no septal abnormalities noted. Tympanic membranes are normal and external auditory canals are clear. Oropharynx with no redness, swelling, or masses, exudates, or evidence of obstruction, uvula midline. Mucous membranes moist. Neck: Trachea midline, no thyromegaly or masses palpated, and no cervical lymphadenopathy. Supple, full range of motion without nuchal rigidity, or vertebral point tenderness. No Meningismus. Chest/axilla: Normal chest wall appearance and motion. Nontender with no deformity. No lesions are appreciated. Cardiovascular: Regular rate and rhythm with a normal S1 and S2. No gallops, murmurs, or rubs. No pulse deficits. Respiratory: Lungs have equal breath sounds bilaterally, clear to auscultation and percussion. No rales, rhonchi or wheezes noted. No increased work of breathing, no retractions or nasal flaring. 17:00 Back: No spinal tenderness. No costovertebral tenderness. Full range of motion. Skin: Warm, dry with normal turgor. Normal color with no rashes, no lesions, and no evidence of cellulitis. MS/ Extremity: Pulses equal, no cyanosis. Neurovascular intact. Full, normal range of motion. 17:00 Abdomen/GI: Inspection: abdomen appears normal, Bowel sounds: normal, Palpation: abdomen is soft and non-tender, in all quadrants, Rectal exam: rectal tone normal, Stool: trace bright red blood on rectal examination. Tenderness present at 12 o'clock, hemorrhoid(s), are not appreciated, external, mass, is not appreciated, swelling, is not appreciated, Nikki RN, fissure at 12 o'clock. 17:00 Neuro: Orientation: is normal, Motor: moves all fours. Vital Signs: 14:05 BP 142 / 85; Pulse 97; Resp 16; Temp 97.1; Pulse Ox 99% on R/A; Weight 56.7 kg; Height la1 5 ft. 1 in. (154.94 cm); 15:54 BP 109 / 57; Pulse 84; Pulse Ox 98% on R/A; rv 16:39 BP 102 / 80; Pulse 85; Pulse Ox 95% on R/A; rv 17:20 BP 113 / 73; Pulse 81; Pulse Ox 98% on R/A; rv 18:03 BP 111 / 78; Pulse 91; Pulse Ox 99% on R/A; rv 14:05 Body Mass Index 23.62 (56.70 kg, 154.94 cm) la1 MDM: 14:59 Patient medically screened. [facility] 17:26 Data reviewed: vital signs. Data interpreted: Pulse oximetry: on room air is 98 %. pm1 Interpretation: normal. 17:42 Counseling: I had a detailed discussion with the patient and/or guardian regarding: the pm1 historical points, exam findings, and any diagnostic results supporting the discharge/admit diagnosis, lab results, the need for outpatient follow up, to return to the emergency department if symptoms worsen or persist or if there are any questions or concerns that arise at home. 11/22 15:17 Order name: Basic Metabolic Panel; Complete Time: 16:04 pm11/22 15:17 Order name: CBC with Diff; Complete Time: 16:04 pm11/22 15:17 Order name: Creatinine for Radiology; Complete Time: 16:04 pm11/22 15:17 Order name: Hepatic Function; Complete Time: 16:04 pm11/22 15:17 Order name: Lipase; Complete Time: 16:04 pm11/22 15:17 Order name: PT-INR; Complete Time: 16:04 pm11/22 15:17 Order name: IV Saline Lock; Complete Time: 15:55 pm1 11/22 15:17 Order name: Labs collected and sent; Complete Time: 15:55 pm1 11/22 15:17 Order name: Urine Dipstick-Ancillary (obtain specimen); Complete Time: 15:55 pm1 11/22 15:17 Order name: Urine Test (obtain specimen); Complete Time: 15:55 pm1 11/22 15:19 Order name: Josh; Complete Time: 17:19 ss 11/22 15:36 Order name: Urine Dipstick--Ancillary (enter results); Complete Time: 17:19 eb Administered Medications: No medications were administered Disposition: 11/23 12:21 Co-signature as Attending Physician, Duncan Loo MD I agree with the assessment and lily plan of care. Disposition: 11/22/17 17:45 Discharged to Home. Impression: Acute anal fissure. - Condition is Stable. - Discharge Instructions: Anal Fissure, Adult, Hemorrhoids. - Prescriptions for Colace 100 mg Oral Tablet - take 1 tablet by ORAL route every 12 hours; 14 tablet. Anusol- HC 25 mg Rectal Suppository - insert 1 suppository by RECTAL route every 12 hours As needed; 20 suppository. - Medication Reconciliation Form, Thank You Letter, Antibiotic Education, Prescription Opioid Use form. - Follow up: Emergency Department; When: As needed; Reason: Worsening of condition. Follow up: Private Physician; When: 2 - 3 days; Reason: Recheck today's complaints, Continuance of care, Re-evaluation by your physician. - Problem is new. - Symptoms have improved. Signatures: Dispatcher [employer] Duncan Davis MD MD cha Attema, Lee, RN RN la1 Royer Spring, APPAREL TRIMMINGS SALES REPRESENTATIVE APPAREL TRIMMINGS SALES REPRESENTATIVE pm1 Jared Yadav RN RN rv Corrections: (The following items were deleted from the chart) 11/22 18:05 17:45 11/22/2017 17:45 Discharged to Home. Impression: Acute anal fissure. Condition is rv Stable. Forms are Medication Reconciliation Form, Thank You Letter, Antibiotic Education, Prescription Opioid Use. Follow up: Emergency Department; When: As needed; Reason: Worsening of condition. Follow up: Private Physician; When: 2 - 3 days; Reason: Recheck today's complaints, Continuance of care, Re-evaluation by your physician. Problem is new. Symptoms have improved. pm1
--- NOTE | 2017-11-22 17:45 | ER ---
Nurse's Notes [facility] Name: Glo Lowery Age: 42 yrs Sex: Female : 1975 Arrival Date: 11/22/2017 Time: 14:01 Bed 28 Private MD: Flaco Lantigua Diagnosis: Acute anal fissure Presentation: 11/22 14:04 Presenting complaint: Patient states: I recently had a hematoma in my abdomen last week la1 and now I am having bright red blood in my stool x2 and pain in my lower abd. Transition of care: patient was not received from another setting of care. Onset of symptoms was November 22, 2017. Risk Assessment: Do you want to hurt yourself or someone else? Patient reports no desire to harm self or others. Initial Sepsis Screen: Does the patient meet any 2 criteria? No. Patient's initial sepsis screen is negative. Does the patient have a suspected source of infection? No. Patient's initial sepsis screen is negative. Care prior to arrival: None. 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 - Social history:: Smoking status: unknown. - Ebola Screening: : No symptoms or risks identified at this time. Screenin:04 Abuse screen: Denies threats or abuse. Denies injuries from another. Nutritional rv screening: No deficits noted. Tuberculosis screening: No symptoms or risk factors identified. Fall Risk None identified. Assessment: 15:03 General: Appears in no apparent distress. comfortable, Behavior is calm, cooperative. rv Pain: Complains of pain in abdomen. Neuro: Level of Consciousness is awake, alert, obeys commands, Oriented to person, place, time, situation. Cardiovascular: Capillary refill < 3 seconds. Respiratory: Airway is patent. GI: Abdomen is flat, non-distended. : No signs and/or symptoms were reported regarding the genitourinary system. EENT: No signs and/or symptoms were reported regarding the EENT system. Derm: Skin is intact. 16:39 Reassessment: Patient appears in no apparent distress at this time. Patient and/or rv family updated on plan of care and expected duration. Pain level reassessed. Patient is alert, oriented x 3, equal unlabored respirations, skin warm/dry/pink. 17:22 Reassessment: Patient appears in no apparent distress at this time. Patient and/or rv family updated on plan of care and expected duration. Pain level reassessed. Patient is alert, oriented x 3, equal unlabored respirations, skin warm/dry/pink. Vital Signs: 14:05 BP 142 / 85; Pulse 97; Resp 16; Temp 97.1; Pulse Ox 99% on R/A; Weight 56.7 kg; Height la1 5 ft. 1 in. (154.94 cm); 15:54 BP 109 / 57; Pulse 84; Pulse Ox 98% on R/A; rv 16:39 BP 102 / 80; Pulse 85; Pulse Ox 95% on R/A; rv 17:20 BP 113 / 73; Pulse 81; Pulse Ox 98% on R/A; rv 18:03 BP 111 / 78; Pulse 91; Pulse Ox 99% on R/A; rv 14:05 Body Mass Index 23.62 (56.70 kg, 154.94 cm) la1 ED Course: 14:01 Patient arrived in ED. sb2 14:02 Flaco Lantigua MD is Private Physician. sb2 14:04 Arm band placed on left wrist. la1 14:05 Triage completed. la1 14:59 Royer Spring NP is PHCP. pm1 14:59 Duncan Loo MD is Attending Physician. pm1 15:04 Patient has correct armband on for positive identification. Bed in low position. Call rv light in reach. Side rails up X 1. Pulse ox on. NIBP on. 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 ss 15:30 Inserted saline lock: 20 gauge in left antecubital area, using aseptic technique. rv 18:05 IV discontinued, bleeding controlled, No redness/swelling at site. Pressure dressing rv applied. Administered Medications: No medications were administered Outcome: 17:45 Discharge ordered by . pm1 18:05 Discharged to home ambulatory. rv 18:05 Condition: good 18:05 Discharge instructions given to patient, Instructed on discharge instructions, follow up and referral plans. medication usage, Demonstrated understanding of instructions, follow-up care, medications, Prescriptions given X 2. 18:05 Patient left the ED. rv Signatures: Nikki Benson, RN RN ss Cecilio Gregorio RN RN la1 Royer Spring, ELECTRICIAN RADIO ELECTRICIAN RADIO pm1 Zuleima Acosta sb2 Jared Yadav RN RN rv
== END 2017-11-22 18:05 | disposition home or self-care (01) ==
LOC: ER 13:58
DX: K60.0 Acute anal fissure (principal)
CPT/HCPCS: 36415; 80048; 80076; 81003; 82272; 83690; 85025; 85610; 99284; J2405; J3010

== ENCOUNTER 2019-01-20 16:45 | Emergency (ER) | payer OTHER, SELFPAY ==
--- OUTSIDE RECORDS SUMMARY | 2019-01-20 16:48 | XMS REPORT ---
:1975 [facility] Address [address] [place] [id number] Care Team Providers Name Role Phone Unavailable Unavailable Unavailable Problems This patient has no known problems. Allergies, Adverse Reactions, Alerts This patient has no known allergies or adverse reactions. Medications This patient has no known medications.
[2019-01-20 19:32] LABS: Basophils % 0.3 % (0-1.3); Lymphocytes % 16.5 % (15.3-44.8); MPV 8.5 fL (7.6-11.3); RBC Red Blood Cell Count 3.52 M/uL (3.86-4.86)
[2019-01-20] MEDS ORDERED: ONDANSETRON 4 MG/2 ML VIAL ONE (19:33)
[2019-01-20] MEDS ORDERED: MORPHINE 4 MG/ML SYR ONE (19:33)
[2019-01-20] MEDS ORDERED: NA CHLORIDE 0.9% 1,000 ML ONE (19:41)
[2019-01-20 19:47] LABS: Albumin 3.5 g/dL (3.4-5.0); Bilirubin Direct 0.1 mg/dL (0-0.2); Bilirubin Total 0.6 mg/dL (0.2-1.0); Potassium 3.5 mmol/L (3.5-5.1); Protein, Total 7.8 g/dL (6.4-8.2)
[2019-01-20 19:50] LABS: Urine Blood TRACE (NEG); Urine Glucose NEGATIVE (NEG); Urine Protein TRACE (NEG); Urine Specific Gravity 1.015 (1.005-1.030); Urine pH 6.5 (5.0-7.0)
[2019-01-20 20:17] LABS: Urine Bacteria <20 /HPF (<20); Urine Culture Reflex Order NOT NEEDED; Urine RBC <5 /HPF (NONE SEEN)
[2019-01-20 20:18] LABS: Urine Mucus 1+ /HPF (NONE SEEN)
--- NOTE | 2019-01-20 20:22 | RAD REPORT ---
EXAM DESCRIPTION: CT - Abdomen Pelvis W Contrast - 01/20/2019 8:04 pm CLINICAL HISTORY: Abdominal pain COMPARISON: 2017 TECHNIQUE: Computed axial tomography of the abdomen pelvis was obtained. 100 cc Isovue-300 was admin istered intravenously. Oral contrast was not requested which limits evaluation of bowel. All CT scans are performed using dose optimization technique as appropriate and may include automated exposure control or mA/KV adjustment according to patient size. FINDINGS: The liver, spleen, pancreas, adrenal and kidneys appear unremarkable. There is no evidence of diverticulitis. A normal appendix Bilateral ovarian follicles with small amount of free fluid in the pelvis Right ovarian follicle measures 15 millimeters left ovarian follicle measures 12 millimeters Spondylolysis involves L5 IMPRESSION: Bilateral ovarian follicles with small amount of free fluid in the pelvis
--- NOTE | 2019-01-20 20:48 | EDPHYS ---
Physician Documentation [facility] Name: Glo Lowery Age: 43 yrs Sex: Female : 1975 Arrival Date: 01/20/2019 Time: 16:46 Bed 5 Private MD: ED Physician Erika Ward HPI: 01/20 19:25 This 43 yrs old Female presents to ER via Ambulatory with complaints of jmm Abdominal Pain, Back Pain. 19:25 The patient presents with abdominal pain. Onset: The symptoms/episode began/occurred jmm gradually, 1 week(s) ago. The symptoms radiate to back. The symptoms are described as achy. Modifying factors: The symptoms are alleviated by nothing, the symptoms are aggravated by alcohol. This is a 43 year old female with a history of anxiety and depression that presents to the ED with complaints of abdominal pain, diarrhea, mucousy stools, and nausea which has been ongoing for a week. Patient denies fever but states having chills. . [employer]: 17:27 LMP 12/2018 aj1 Historical: - Allergies: 17:27 No Known Allergies; aj1 - Home Meds: 17:27 Trazodone Oral [Active]; Clonidine Oral [Active]; Prozac Oral [Active]; aj1 - PMHx: 17:27 Anxiety; Depression; aj1 - PSHx: 17:27 ; D \T\ C; aj1 - Immunization history:: Flu vaccine is up to date. - Social history:: Smoking status: Patient/guardian denies using tobacco. - Ebola Screening: : Patient denies travel to an Ebola-affected area in the 21 days before illness onset. ROS: 19:25 Constitutional: Negative for fever, chills, and weight loss, Cardiovascular: Negative jmm for chest pain, palpitations, and edema, Respiratory: Negative for shortness of breath, cough, wheezing, and pleuritic chest pain. 19:25 Abdomen/GI: Positive for abdominal pain, nausea, diarrhea. 19:25 Back: Positive for radiated pain. 19:25 All other systems are negative. Exam: 19:25 Constitutional: This is a well developed, well nourished patient who is awake, alert, jmm and in no acute distress. Head/Face: atraumatic. Eyes: EOMI, no conjunctival erythema appreciated ENT: Moist Mucus Membranes Neck: Trachea midline, Supple Chest/axilla: Normal chest wall appearance and motion. Cardiovascular: Regular rate and rhythm. No edema appreciated Respiratory: Normal respirations, no respiratory distress appreciated 19:25 Skin: General appearance color normal MS/ Extremity: Moves all extremities, no obvious deformities appreciated, no edema noted to the lower extremities Neuro: Awake and alert, normal gait Psych: Behavior is normal, Mood is normal, Patient is cooperative and pleasant 19:25 Abdomen/GI: Inspection: abdomen appears normal, Bowel sounds: normal, Palpation: abdomen is soft and non-tender, in all quadrants. 19:25 Back: CVA tenderness, that is moderate, is noted on the right. Vital Signs: 17:27 BP 104 / 57; Pulse 89; Resp 18; Temp 98.7; Pulse Ox 99% on R/A; Weight 60.78 kg (R); aj1 Height 5 ft. 1 in. (154.94 cm) (R); Pain 3/10; 19:44 BP 96 / 57; Pulse 88; Resp 18; Temp 98.7(O); Pulse Ox 100% on R/A; jb5 20:50 BP 113 / 50; Pulse 78; Resp 17 S; Temp 98.8(O); Pulse Ox 100% on R/A; Pain 0/10; cc3 17:27 Body Mass Index 25.32 (60.78 kg, 154.94 cm) aj1 MDM: 19:18 Patient medically screened. [facility] 20:45 Data reviewed: vital signs, nurses notes. Counseling: I had a detailed discussion with obinna the patient and/or guardian regarding: the historical points, exam findings, and any diagnostic results supporting the discharge/admit diagnosis, lab results, radiology results, the need for outpatient follow up, to return to the emergency department if symptoms worsen or persist or if there are any questions or concerns that arise at home. ED course: Patient is alert and non toxic in appearance in the ED. pain relieved in the ED. patient is advised to follow up with gi for reevaluation. patient otherwise given strict return precautions. patient understood and agrees with the plan of care. . 01/20 19:15 Order name: Basic Metabolic Panel; Complete Time: 19:54 [facility] 01/20 19:15 Order name: CBC with Diff; Complete Time: 19:54 [facility] 01/20 19:15 Order name: Creatinine for Radiology; Complete Time: 19:54 [facility] 01/20 19:15 Order name: Hepatic Function; Complete Time: 19:54 [facility] 01/20 19:15 Order name: Lipase; Complete Time: 19:54 [facility] 01/20 19:42 Order name: Urine Culture [facility] 01/20 19:15 Order name: IV Saline Lock; Complete Time: 19:26 [facility] 01/20 19:23 Order name: CT Abd/Pelvis - IV Contrast Only; Complete Time: 20:28 [facility] 01/20 19:42 Order name: Urine Microscopic Only; Complete Time: 20:18 [facility] 01/20 19:43 Order name: Urine Dipstick--Ancillary (enter results); Complete Time: 19:54 [facility] 01/20 19:43 Order name: Urine --Ancillary (enter results); Complete Time: 19:54 [facility] 01/20 19:15 Order name: Labs collected and sent; Complete Time: 19:26 [facility] 01/20 19:15 Order name: Urine Dipstick-Ancillary (obtain specimen); Complete Time: 19:41 [facility] 01/20 19:15 Order name: Urine Test (obtain specimen); Complete Time: 19:41 [facility] Administered Medications: 19:46 Drug: Zofran 4 mg Route: IVP; Site: left antecubital; ea 20:35 Follow up: Response: No adverse reaction; Nausea is decreased cc3 19:47 Drug: morphine 4 mg Route: IVP; Site: left antecubital; ea 20:35 Follow up: Response: No adverse reaction; Pain is decreased; RASS: Alert and Calm (0) cc3 19:50 Drug: NS 0.9% 1000 ml Route: IV; Rate: 1 bolus; Site: left antecubital; ea 20:35 Follow up: Response: No adverse reaction; IV Status: Completed infusion; IV Intake: cc3 1000ml Disposition: 01/20/19 20:46 Discharged to Home. Impression: Urinary tract infection, site not specified, Abdominal and pelvic pain. - Condition is Stable. - Discharge Instructions: Pelvic Pain, Female, Urinary Tract Infection, Adult. - Prescriptions for Zofran ODT 4 mg Oral tablet,disintegrating - place 1 tablet by TRANSLINGUAL route every 4-6 hours; 20 tablet. Ultracet 37.5- 325 mg Oral Tablet - take 1 tablet by ORAL route every 6 hours - for up to 5 days; do not exceed 8 tablets per day.; 20 tablet. Bactrim DS 800- 160 mg Oral Tablet - take 1 tablet by ORAL route every 12 hours for 10 days; 20 tablet. - Medication Reconciliation Form, Thank You Letter, Antibiotic Education, Prescription Opioid Use form. - Follow up: Private Physician; When: 2 - 3 days; Reason: Recheck today's complaints, Continuance of care, Re-evaluation by your physician. Follow up: Justino Jang MD; When: 2 - 3 days; Reason: Recheck today's complaints, Continuance of care, Re-evaluation by your physician. Signatures: Dispatcher [employer] EDSinai Bowling RN RN ajFamilia Lamar PA PA jmm Antunez, Elena, RN RN ea Cordel, Charlene cc3 Corrections: (The following items were deleted from the chart) 20:48 20:46 01/20/2019 20:46 Discharged to Home. Impression: Urinary tract infection, site jmm not specified; Abdominal and pelvic pain. Condition is Stable. Forms are Medication Reconciliation Form, Thank You Letter, Antibiotic Education, Prescription Opioid Use. Follow up: Private Physician; When: 2 - 3 days; Reason: Recheck today's complaints, Continuance of care, Re-evaluation by your physician. [facility] 21:03 20:48 01/20/2019 20:46 Discharged to Home. Impression: Urinary tract infection, site cc3 not specified; Abdominal and pelvic pain. Condition is Stable. Discharge Instructions: Pelvic Pain, Female, Urinary Tract Infection, Adult. Prescriptions for Zofran ODT 4 mg Oral tablet,disintegrating - place 1 tablet by TRANSLINGUAL route every 4-6 hours; 20 tablet, Ultracet 37.5-325 mg Oral Tablet - take 1 tablet by ORAL route every 6 hours - for up to 5 days; do not exceed 8 tablets per day.; 20 tablet, Bactrim DS 800-160 mg Oral Tablet - take 1 tablet by ORAL route every 12 hours for 10 days; 20 tablet. and Forms are Medication Reconciliation Form, Thank You Letter, Antibiotic Education, Prescription Opioid Use. Follow up: Private Physician; When: 2 - 3 days; Reason: Recheck today's complaints, Continuance of care, Re-evaluation by your physician. Follow up: Justino Jang; When: 2 - 3 days; Reason: Recheck today's complaints, Continuance of care, Re-evaluation by your physician. obinna
--- NOTE | 2019-01-20 20:48 | ER ---
Nurse's Notes [facility] Name: Glo Lowery Age: 43 yrs Sex: Female : 1975 Arrival Date: 01/20/2019 Time: 16:46 Bed 5 Private MD: Diagnosis: Urinary tract infection, site not specified;Abdominal and pelvic pain Presentation: 01/20 17:24 Presenting complaint: Patient states: Abdominal pain, chills, back pain. Today the back aj1 of her left leg was bothering her as well, she has had a poor appetite. Reports nausea. Denies vomiting, diarrhea. Patient reports "rectal discharge" when she wipes. Transition of care: patient was not received from another setting of care. Onset of symptoms was 2018. Risk Assessment: Do you want to hurt yourself or someone else? Patient reports no desire to harm self or others. Initial Sepsis Screen: Does the patient meet any 2 criteria? No. Patient's initial sepsis screen is negative. Does the patient have a suspected source of infection? Yes: Acute abdominal pain. Care prior to arrival: None. 17:24 Method Of Arrival: Ambulatory aj 17:24 Acuity: CLAUDIO 3 aj1 Triage Assessment: 17:27 General: Appears in no apparent distress. comfortable, Behavior is calm, cooperative, aj1 appropriate for age. Pain: Pain currently is 3 out of 10 on a pain scale. Pain: Complains of pain in back, abdomen, left leg and neck Pain. Neuro: Level of Consciousness is awake, alert, obeys commands, Oriented to person, place, time, situation. Cardiovascular: Patient's skin is warm and dry. Respiratory: Airway is patent Respiratory effort is even, unlabored, Respiratory pattern is regular, symmetrical. GI: Reports nausea, Patient currently denies diarrhea, vomiting. 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 - Social history:: Smoking status: Patient/guardian denies using tobacco. - Ebola Screening: : Patient denies travel to an Ebola-affected area in the 21 days before illness onset. Screenin:20 Abuse screen: Denies threats or abuse. Denies injuries from another. Nutritional cc3 screening: No deficits noted. Tuberculosis screening: No symptoms or risk factors identified. Fall Risk Ambulatory Aid- None/Bed Rest/Nurse Assist (0 pts). Gait- Normal/Bed Rest/Wheelchair (0 pts) Mental Status- Oriented to own ability (0 pts). Assessment: 19:45 General: Appears uncomfortable, Behavior is calm, cooperative, appropriate for age. ea Pain: Complains of pain in abdomen and back. Neuro: Level of Consciousness is awake, alert, obeys commands, Oriented to person, place, time, situation. Cardiovascular: Patient's skin is warm and dry. Respiratory: Airway is patent Respiratory effort is even, unlabored, Respiratory pattern is regular, symmetrical. GI: Bowel sounds present X 4 quads. Abd is soft and non tender X 4 quads. Derm: Skin is pink, warm \\T\\ dry. 20:44 Reassessment: Patient and/or family updated on plan of care and expected duration. Pain ea level reassessed. Patient is alert, oriented x 3, equal unlabored respirations, skin warm/dry/pink. 21:00 Reassessment: Patient appears in no apparent distress at this time. Patient and/or cc3 family updated on plan of care and expected duration. Pain level reassessed. Patient is alert, oriented x 3, equal unlabored respirations, skin warm/dry/pink. TYLER Hanks discharged the patient home with prescriptions given. IV cannula removed and patient left ER vitally stable and ambulatory with her family. No valuables left in the patient's room. Patient denies pain at this time. Patient states feeling better. Patient states symptoms have improved. Vital Signs: 17:27 BP 104 / 57; Pulse 89; Resp 18; Temp 98.7; Pulse Ox 99% on R/A; Weight 60.78 kg (R); aj1 Height 5 ft. 1 in. (154.94 cm) (R); Pain 3/10; 19:44 BP 96 / 57; Pulse 88; Resp 18; Temp 98.7(O); Pulse Ox 100% on R/A; jb5 20:50 BP 113 / 50; Pulse 78; Resp 17 S; Temp 98.8(O); Pulse Ox 100% on R/A; Pain 0/10; cc3 17:27 Body Mass Index 25.32 (60.78 kg, 154.94 cm) [facility] ED Course: 16:46 Patient arrived in ED. as 17:26 Triage completed. aj1 17:27 Arm band placed on Patient placed in waiting room, Patient notified of wait time. aj1 19:15 Familia Hanks PA is PHCP. m 19:15 Erika Ward MD is Attending Physician. jmm 19:16 Inserted saline lock: 20 gauge in left antecubital area, using aseptic technique. Blood jb5 collected. 19:20 Dee Dee Aggarwal is Primary Nurse. cc3 19:20 Patient has correct armband on for positive identification. Placed in gown. Bed in low cc3 position. Call light in reach. Side rails up X2. court monitor on. Pulse ox on. NIBP on. 19:26 Basic Metabolic Panel Sent. jb5 19:26 CBC with Diff Sent. jb5 19:26 Creatinine for Radiology Sent. jb5 19:26 Hepatic Function Sent. jb5 19:26 Lipase Sent. jb5 19:29 Radiology exam delayed due to lab results not completed at this time. (BUN/Creatinine) ma test not completed at this time. 20:04 CT Abd/Pelvis - IV Contrast Only In Process Unspecified. EDMS 20:48 Justino Jang MD is Referral Physician. [facility] 21:00 No provider procedures requiring assistance completed. IV discontinued, intact, cc3 bleeding controlled, No redness/swelling at site. Pressure dressing applied. Administered Medications: 19:46 Drug: Zofran 4 mg Route: IVP; Site: left antecubital; ea 20:35 Follow up: Response: No adverse reaction; Nausea is decreased cc3 19:47 Drug: morphine 4 mg Route: IVP; Site: left antecubital; ea 20:35 Follow up: Response: No adverse reaction; Pain is decreased; RASS: Alert and Calm (0) cc3 19:50 Drug: NS 0.9% 1000 ml Route: IV; Rate: 1 bolus; Site: left antecubital; ea 20:35 Follow up: Response: No adverse reaction; IV Status: Completed infusion; IV Intake: cc3 1000ml Intake: 20:35 IV: 1000ml; Total: 1000ml. cc3 Outcome: 20:46 Discharge ordered by . obinna 21:00 Discharged to home ambulatory, with family. cc3 21:00 Condition: stable 21:00 Discharge instructions given to patient, family, Instructed on discharge instructions, follow up and referral plans. medication usage, Demonstrated understanding of instructions, follow-up care, medications, Prescriptions given X 3. 21:03 Patient left the ED. cc3 Signatures: Dispatcher [employer] EDMS Sinai Mendez RN RN aj1 Familia Hanks PA PA jmm Martinez, Amelia as Jordan, Nathan nj Broussard, Jennifer jb5 Glo Wright RN RN ea Cordel, Charlene cc3 Corrections: (The following items were deleted from the chart) 19:16 19:15 bleeding controlled, Pressure dressing applied, jb5 jb5
[2019-01-20 23:28] VITALS: TEMP 98.7
[2019-01-20 23:30] VITALS: BP 96/57; O2SAT 100
== END 2019-01-20 21:03 | disposition home or self-care (01) ==
LOC: ER 16:45
DX: N39.0 Urinary tract infection, site not specified (principal); F41.9 Anxiety disorder, unspecified; F32.9 Major depressive disorder, single episode, unspecified
CPT/HCPCS: 36415; 74177; 80048; 80076; 81003; 81015; 81025; 83690; 85025; 87086; 87088; J2405; J7030; Q9967